=== PATIENT | male | born 1975 | race Asian ===

== ENCOUNTER 2023-04-01 10:31 | Emergency (ER) | payer BC ==
[2023-04-01 11:33] LABS: BASOPHILS ABSOLUTE AUTO 0.02 K/mm3 (0.01-0.08); BASOPHILS PERCENT AUTO 0.2 % (0.1-1.2); EOSINOPHILS ABSOLUTE AUTO 0.14 K/mm3 (0.04-0.54); EOSINOPHILS PERCENT AUTO 1.5 (0.8-7.0); HEMATOCRIT 43.4 % (40.1-51.0); HEMOGLOBIN 14.5 gm/dl (13.7-17.5); IMMATURE GRAN ABSOLUTE AUTO 0.07 K/mm3 (0.00-0.10); IMMATURE GRAN PERCENT AUTO 0.7 % (<=1.0); LYMPHOCYTES ABSOLUTE AUTO 2.15 K/mm3 (1.32-3.57); LYMPHOCYTES PERCENT AUTO 22.8 % (21.8-53.1); MEAN CORPUSCULAR HEMOGLOBIN 33.5 pg (25.7-32.2); MEAN CORPUSCULAR HGB CONC 33.4 g/dl (32.2-35.5); MEAN CORPUSCULAR VOLUME 100.2 fl (79.0-92.2); MEAN PLATELET VOLUME 9.4 fl (9.4-12.3); MONOCYTES ABSOLUTE AUTO 0.92 K/mm3 (0.30-0.82); MONOCYTES PERCENT AUTO 9.8 % (5.3-12.2); NEUTROPHILS ABSOLUTE AUTO 6.11 K/mm3 (1.78-5.38); PLATELET COUNT,PLT 340 K/mm3 (163-337); RED BLOOD CELL COUNT 4.33 M/mm3 (4.63-6.08); WHITE BLOOD CELL COUNT,WBC 9.41 K/mm3 (4.23-9.07)
[2023-04-01 11:54] LABS: A/G RATIO 0.9 (1-2); ALANINE AMINOTRANSFERASE,ALT 32 U/L (16-63); ALBUMIN 3.2 g/dl (3.4-5.0); ALKALINE PHOSPHATASE 51 U/L (46-116); ANION GAP 13.1 (5-15); ASPARTATE AMNIOTRANSFERASE,AST 30 U/L (15-37); BILIRUBIN TOTAL 0.6 mg/dL (0.2-1.0); BLOOD UREA NITROGEN,BUN 14 mg/dL (7-18); BUN/CREATININE RATIO 15.6 (14-18); C-REACTIVE PROTEIN <0.2 mg/dL (<1.0); CALCIUM 8.1 mg/dL (8.5-10.1); CARBON DIOXIDE,CO2 24 mEq/L (21-32); CHLORIDE,CL 105 mEq/L (98-107); CREATININE 0.9 mg/dL (0.7-1.3); EST CRCL DRUG DOSING (CG) 80.78 mL/min; ESTIMATED GFR 105 mL/min (>60); GLUCOSE RANDOM 91 mg/dL (70-99); POTASSIUM,K 4.1 mEq/L (3.5-5.1); PROTEIN TOTAL,TP 6.6 g/dl (6.4-8.2); SODIUM,NA 138 mEq/L (136-145)
== END 2023-04-01 13:00 | disposition home or self-care (01) ==
LOC: JD.ED 10:31
DX: R10.84 Generalized abdominal pain (principal); R19.7 Diarrhea, unspecified; I10 Essential (primary) hypertension; F17.210 Nicotine dependence, cigarettes, uncomplicated
CPT/HCPCS: 36415; 74019; 74019-26; 80053; 85025; 86140; 99284

== ENCOUNTER 2023-05-12 11:30 | Emergency (ER) | payer BC | END 2023-05-12 12:31 | disposition home or self-care (01) | LOC: JD.ED 11:30 | DX: R10.10 Upper abdominal pain, unspecified (principal); I10 Essential (primary) hypertension; Z72.0 Tobacco use | CPT/HCPCS: 99283 ==

== ENCOUNTER 2023-12-29 10:13 | Emergency (ER) | payer SELFPAY | END 2023-12-29 11:46 | disposition home or self-care (01) | LOC: JD.ED 10:13 | DX: G51.0 Bell's palsy (principal); I10 Essential (primary) hypertension; F17.210 Nicotine dependence, cigarettes, uncomplicated | CPT/HCPCS: 82947; 99283; 99284 ==